=== PATIENT | female | born 1995 | race African-American/Black ===

== ENCOUNTER 2017-09-01 10:47 | Emergency (ER) | payer SELFPAY ==
[~2017-09-01] VITALS: Ht 160 cm; Wt 49.9 kg
[2017-09-01] MEDS ORDERED: NKM (10:55)
[2017-09-01 10:56] VITALS: BP 136/82
--- NOTE | 2017-09-01 11:16 | Emergency Room Report ---
History of Present Illness General Chief Complaint: Sore Throat Source: Patient Present Illness HPI Patient states that she noted last night some soreness in her throat. She states that when she woke up this morning her sore throat was worse. She denies difficulty swallowing or breathing. She denies pain with opening her mouth. She denies ear pain. She denies neck pain. She denies nausea or vomiting. She denies headache. She denies fever or chills. She has no other complaints. Allergies: Coded Allergies: No Known Allergies (Unverified , 09/01/17) Patient History Past Medical History: none Past Surgical History: none Social History: Denies: smoking, alcohol use, drug use Last Menstrual Period: 08/31/17 Now: No Reviewed Nursing Documentation: PMH: Agreed; PSxH: Agreed Nursing Documentation-PMH Past Medical History: No Stated History Review of Systems All Other Systems: negative except mentioned in HPI Physical Exam Vital Signs Date Time Temp Pulse Resp B/P (MAP) Pulse Ox O2 Delivery O2 Flow Rate FiO2 09/01/17 10:53 98.3 86 18 136/82 98 Room Air 98.2 Sp02 EP Interpretation: reviewed, normal General Appearance: no apparent distress, alert, GCS 15, non-toxic Head: normocephalic, atraumatic Eyes: bilateral eye normal inspection, bilateral eye PERRL ENT: hearing grossly normal, normal pharynx, no angioedema, normal voice, pharyngeal erythema Neck: full range of motion, supple/symm/no masses Respiratory: no respiratory distress, no retraction, no accessory muscle use, speaking full sentences Rectal: deferred Musculoskeletal: back normal, gait/station normal, normal range of motion, non- tender Neurologic: alert, oriented x3, responsive, motor strength/tone normal, sensory intact, speech normal Psychiatric: judgement/insight normal, memory normal, mood/affect normal, no suicidal/homicidal ideation Skin: normal color, no rash, warm/dry, well hydrated Medical Decision Making Diagnostic Impression: Primary Impression: Sore throat ER Course This patient has a clinical presentation consistent with pharyngitis. Physical exam is consistent with a viral etiology. There is no evidence of peritonsillar abscess or deep neck abscess. There is no airway edema. Overall , this patient had a very benign examination. The patient only needs supportive care. The patient is instructed to get [id number] lozenges and ibuprofen. The patient was given return precautions and followup instructions. Last Vital Signs Date Time Temp Pulse Resp B/P (MAP) Pulse Ox O2 Delivery O2 Flow Rate FiO2 09/01/17 10:56 98.2 86 18 136/82 98 Room Air 98.2 Disposition: HOME, SELF-CARE Condition: Improved Patient Instructions: Sore Throat Sheridan Jay DO Sep 01, 2017 11:16
== END 2017-09-01 11:35 | disposition home or self-care (01) ==
LOC: EMR 11:34
DX: J02.9 Acute pharyngitis, unspecified (principal)
CPT/HCPCS: 99282